=== PATIENT | female | born 1970 | race African-American/Black ===

== ENCOUNTER 2016-09-09 17:02 | Emergency (ER) | payer SELFPAY ==
[~2016-09-09 17:02] MED LIST: CIPRO PO; FLEXERIL PO; FLEXERIL10 M1 PO; FLEXERIL10 MG PO; IBUPROFEN800 MG PO; KETOPROFEN PO; LOMOTIL TABLET1 TAB PO; MOTRIN400 MG PO; MOTRIN600 MG PO; ORUDIS75 M1 DOB; ORUDIS75 M1 PO; PHENERGAN PO; PHENERGAN25 MG PO; VISTARIL PO
== END 2016-09-09 18:57 | disposition home or self-care (01) ==
LOC: CFTX 17:02
DX: Z20.818 Contact with and (suspected) exposure to other bacterial communicable diseases (principal)
CPT/HCPCS: 87651; 99282